=== PATIENT | female | born 1980 | race African-American/Black ===

== ENCOUNTER 2024-10-20 13:35 | Inpatient (IN) | payer OTHER ==
[~2024-10-20] VITALS: Ht 167.6 cm; Wt 108.9 kg
[2024-10-20 14:27] LABS: CLARITY,URINE SL CLOUDY (CLEAR); COLOR,URINE AMBER (YELLOW)
[2024-10-20 14:28] LABS: BILIRUBIN,URINE NEGATIVE (NEGATIVE); GLUCOSE, URINE NEGATIVE (NEGATIVE); KETONES,URINE NEGATIVE (NEGATIVE); LEUKOCYTE ESTERASE ,URINE NEGATIVE (NEGATIVE); NITRITE,URINE NEGATIVE (NEGATIVE); PH,URINE 6 (5 - 7); PROTEIN,URINE DIPSTICK TRACE (NEGATIVE); URINE UROBILINOGEN 0.2 mg/dL (0.2 - 1)
[2024-10-20 14:41] LABS: AMORPHOUS SEDIMENT,URINE FEW; BACTERIA,URINE MODERATE /HPF; EPITHELIAL CELLS,URINE FEW /LPF; RBC,URINE 0-5 /HPF (0-5); WBC,URINE (MAN) 0-5 /HPF (0-5)
[2024-10-20] MEDS: ONDANSETRON HCL INJ 2MG/ML 2ML 2 MG/ML VIAL IV STA (16:14)
[2024-10-20] MEDS: KETOROLAC TROMETHAMINE 30 MG/ML VIAL IV STA (16:15)
[2024-10-20] MEDS: Morphine 4mg INJECTION 4 MG/ML INJ IV STA (16:16)
[2024-10-20] MEDS: SODIUM CHLORIDE 0.9% 1000ML 1,000 ML IV STA ×2 (16:17→19:43)
[2024-10-20 16:23] LABS: BASOPHILS % 0.2 % (0.0-1.0); EOSINOPHILS # (AUTO) 0.1 (0.0-0.4); EOSINOPHILS % 1.1 % (0.0-6.0); HEMATOCRIT 46.8 % (34.2-44.1); HEMOGLOBIN 15.1 g/dL (12.0-16.0); LYMPHOCYTES # (AUTO) 2.3 (1.0-3.2); LYMPHOCYTES % 20.7 % (18.0-39.1); MEAN CORPUSCULAR HEMOGLOBIN 29.9 pg (28-32); MEAN CORPUSCULAR HGB CONC 32.3 g/dL (31-35); MEAN CORPUSCULAR VOLUME 92.7 fL (81-99); MONOCYTES # (AUTO) 0.7 (0.2-0.8); MONOCYTES % 6.3 % (4.4-11.3); NEUTROPHILS # (AUTO) 7.8 (2.1-6.9); NEUTROPHILS % 71.3 % (38.7-80.0); PLATELET COUNT 246 x10e3/uL (140-360); RED BLOOD COUNT 5.05 x10e6/uL (3.6-5.1); RED CELL DISTRIBUTION WIDTH 12.5 % (11.7-14.4); WHITE BLOOD COUNT 10.94 x10e3/uL (4.8-10.8)
[2024-10-20 16:53] LABS: ALANINE AMINOTRANSFERASE 31 IU/L (0-55); ALBUMIN 3.7 g/dL (3.5-5.0); ALBUMIN/GLOBULIN RATIO 0.8 (0.8-2.0); ALKALINE PHOSPHATASE 37 IU/L (40-150); ANION GAP 17.1 mmol/L (8-16); BILIRUBIN,TOTAL 0.3 mg/dL (0.2-1.2); BLOOD UREA NITROGEN 9 mg/dL (7-26); BUN/CREATININE RATIO 11 (6-25); CALCIUM 8.8 mg/dL (8.4-10.2); CARBON DIOXIDE 16 mmol/L (22-29); CHLORIDE 110 mmol/L (98-107); CREATININE, SERUM 0.79 mg/dL (0.57-1.11); EST GLOMERULAR FILTRATION RATE 95 ML/MIN (>=60); GLUCOSE 80 mg/dL (74-118); LIPASE 32 U/L (8-78); POTASSIUM 4.1 mmol/L (3.5-5.1); SODIUM 139 mmol/L (136-145); TOTAL PROTEIN 8.2 g/dL (6.5-8.1)
[2024-10-20 17:08] LABS: TROPONIN I < 0.001 ng/mL (0-0.300)
[2024-10-20 18:22] LABS: PROTHROMBIN TIME 13.8 seconds (11.9-14.5)
[2024-10-20 18:23] LABS: PARTIAL THROMBOPLASTIN TIME 27.1 seconds (23.8-35.5)
[2024-10-20] MEDS ORDERED: IOPAMIDOL 370 MG/ML 100 ML INFUS..BTL INJ ONE (18:39)
[2024-10-20] MEDS ORDERED: APIXABAN 2.5 MG TABLET PO SCH (22:30)
[2024-10-20] MEDS: HEPARIN SOD (PORCINE) 5,000 UNIT/ML VIAL IV ONE (23:26)
[2024-10-20] MEDS: SODIUM CHLORIDE 0.9% 1000ML 1,000 ML IV SCH (23:28)
[2024-10-20] MEDS: HEPARIN SOD/DEXTROSE 5% 25000 UNIT/250 ML BAG IV SCH (23:28)
[2024-10-20 23:50] VITALS: PULSE 73; RESP 22; O2SAT 99
[2024-10-21] VITALS (12 sets, daily range): BP systolic 141–168; BP diastolic 82–102; PULSE 66–82; RESP 15–20; TEMP 97.3–98; O2SAT 97–100
[2024-10-21] MEDS: ONDANSETRON HCL INJ 2MG/ML 2ML 2 MG/ML VIAL IV PRN (03:51)
[2024-10-21] MEDS: Morphine 4mg INJECTION 4 MG/ML INJ IV PRN (03:51)
[2024-10-21] MEDS ORDERED: GUAIFENESIN/DEXTROMETHORPHAN LIQD 5 ML UDC PO PRN (04:00)
[2024-10-21] MEDS ORDERED: DOCUSATE SODIUM 100 MG CAP PO PRN ×2 (04:00→13:00)
[2024-10-21] MEDS ORDERED: MAGNESIUM/ALUMINUM/SIMETHICONE 30 ML UDC PO PRN (04:00)
[2024-10-21] MEDS ORDERED: ALBUTEROL SULF 0.083% NEB SOLN 3 ML NEB NEB PRN (04:00)
[2024-10-21] MEDS ORDERED: MELATONIN 3 MG TAB PO PRN (04:00)
[2024-10-21] MEDS ORDERED: HYDRALAZINE HCL 20 MG/ML VIAL IV PRN ×2 (04:00→13:00)
[2024-10-21 06:01] LABS: BASOPHILS % 0.1 % (0.0-1.0); EOSINOPHILS # (AUTO) 0.1 (0.0-0.4); EOSINOPHILS % 1.6 % (0.0-6.0); HEMATOCRIT 33.5 % (34.2-44.1); LYMPHOCYTES # (AUTO) 3.2 (1.0-3.2); LYMPHOCYTES % 36.1 % (18.0-39.1); MEAN CORPUSCULAR HEMOGLOBIN 29.8 pg (28-32); MEAN CORPUSCULAR HGB CONC 32.8 g/dL (31-35); MEAN CORPUSCULAR VOLUME 90.8 fL (81-99); MONOCYTES # (AUTO) 0.7 (0.2-0.8); MONOCYTES % 8.2 % (4.4-11.3); NEUTROPHILS # (AUTO) 4.7 (2.1-6.9); NEUTROPHILS % 53.7 % (38.7-80.0); PLATELET COUNT 225 x10e3/uL (140-360); RED BLOOD COUNT 3.69 x10e6/uL (3.6-5.1); RED CELL DISTRIBUTION WIDTH 12.7 % (11.7-14.4); WHITE BLOOD COUNT 8.83 x10e3/uL (4.8-10.8)
[2024-10-21 06:19] LABS: ALBUMIN 2.9 g/dL (3.5-5.0); ALBUMIN/GLOBULIN RATIO 0.9 (0.8-2.0); ANION GAP 10.7 mmol/L (8-16); BILIRUBIN,TOTAL 0.4 mg/dL (0.2-1.2); CALCIUM 8.2 mg/dL (8.4-10.2); CREATININE, SERUM 0.77 mg/dL (0.57-1.11); POTASSIUM 3.7 mmol/L (3.5-5.1); TOTAL PROTEIN 6.1 g/dL (6.5-8.1)
[2024-10-21 06:44] LABS: CREATINE KINASE 113 IU/L (29-168)
[2024-10-21 06:53] LABS: TROPONIN I < 0.001 ng/mL (0-0.300)
[2024-10-21] MEDS: MULTIVITAMINS/MINERALS TAB PO SCH (09:25)
[2024-10-21] MEDS ORDERED: DIPHENHYDRAMINE HCL 25 MG CAP PO PRN (13:00)
[2024-10-21] MEDS ORDERED: LIDOCAINE 4% PATCH TP PRN (13:00)
[2024-10-21] MEDS ORDERED: POTASSIUM CHLORIDE 20 MEQ TAB CR PO PRN (13:00)
[2024-10-21] MEDS ORDERED: DEXTROSE 50% SYRINGE 50 ML IV PRN (13:00)
[2024-10-21] MEDS ORDERED: ALBUTEROL/IPRATROPIUM 3 ML NEB NEB PRN (13:00)
[2024-10-21] MEDS ORDERED: BENZONATATE 100 MG CAP PO PRN (13:00)
[2024-10-21] MEDS ORDERED: ACETAMINOPHEN 325 MG TAB PO PRN (13:00)
[2024-10-21] MEDS ORDERED: SIMETHICONE 80 MG CHEW PO PRN (13:00)
[2024-10-21] MEDS ORDERED: MELATONIN 5 MG TABLET PO PRN (13:00)
[2024-10-21] MEDS ORDERED: HEPARIN SOD/DEXTROSE 5% 25000 UNIT/250 ML BAG IV SCH (15:00)
[2024-10-21] MEDS ORDERED: ENSKYCE 28 TAB1 EACH (15:53)
[2024-10-21] MEDS: ACETAMINOPHEN 325 MG TAB PO PRN (16:05)
[2024-10-21 17:39] LABS: CREATINE KINASE 94 IU/L (29-168)
[2024-10-21 17:46] LABS: TROPONIN I < 0.001 ng/mL (0-0.300)
[2024-10-21] MEDS: APIXABAN 5 MG TABLET PO SCH (20:36)
[2024-10-22] VITALS (8 sets, daily range): BP systolic 122–144; BP diastolic 77–97; PULSE 76–90; RESP 17–19; TEMP 98.1–98.5; O2SAT 95–100
[2024-10-22 05:12] LABS: BASOPHILS % 0.1 % (0.0-1.0); EOSINOPHILS # (AUTO) 0.1 (0.0-0.4); EOSINOPHILS % 1.5 % (0.0-6.0); HEMATOCRIT 34.8 % (34.2-44.1); HEMOGLOBIN 11.7 g/dL (12.0-16.0); LYMPHOCYTES # (AUTO) 2.1 (1.0-3.2); MEAN CORPUSCULAR HGB CONC 33.6 g/dL (31-35); MEAN CORPUSCULAR VOLUME 89.2 fL (81-99); MONOCYTES # (AUTO) 0.6 (0.2-0.8); MONOCYTES % 8.5 % (4.4-11.3); NEUTROPHILS # (AUTO) 4.5 (2.1-6.9); NEUTROPHILS % 61.6 % (38.7-80.0); PLATELET COUNT 260 x10e3/uL (140-360); RED CELL DISTRIBUTION WIDTH 12.6 % (11.7-14.4); WHITE BLOOD COUNT 7.31 x10e3/uL (4.8-10.8)
[2024-10-22 05:37] LABS: ANION GAP 12.7 mmol/L (8-16); CALCIUM 9.3 mg/dL (8.4-10.2); CREATININE, SERUM 0.8 mg/dL (0.57-1.11); POTASSIUM 3.7 mmol/L (3.5-5.1)
[2024-10-22] MEDS: PANTOPRAZOLE SOD 40 MG TABEC PO SCH (09:39)
[2024-10-22] MEDS: SODIUM CHLORIDE 0.9% 250ML 250 ML ONE (09:45)
[2024-10-22] MEDS ORDERED: ELIQUIS5 MG PO (16:21)
== END 2024-10-22 18:00 | disposition home or self-care (01) | DRG 175 ==
LOC: ER 14:20 → ERHOLD 21:13 → ICU 10-21 08:38 → MED/SURG 10-21 19:40
PROVIDERS: ADMIT Internal Medicine; ATTEND Internal Medicine
DX: I26.99 Other pulmonary embolism without acute cor pulmonale (principal); J18.9 Pneumonia, unspecified organism; I26.93 Single subsegmental thrombotic pulmonary embolism without acute cor pulmonale; J30.9 Allergic rhinitis, unspecified; N20.0 Calculus of kidney; R22.2 Localized swelling, mass and lump, trunk; N83.209 Unspecified ovarian cyst, unspecified side; E66.01 Morbid (severe) obesity due to excess calories; Z68.38 Body mass index [BMI] 38.0-38.9, adult; K05.20 Aggressive periodontitis, unspecified; Z79.01 Long term (current) use of anticoagulants; Z79.3 Long term (current) use of hormonal contraceptives; Z90.710 Acquired absence of both cervix and uterus; Z86.718 Personal history of other venous thrombosis and embolism
CPT/HCPCS: 36415; 70450; 71045; 71260; 74176; 76705; 80048; 80053; 81001; 82550; 83690; 84484; 84702; 85025; 85379; 85610; 85730; 93005; 93306; 93970; 94799; 99252; 99284; J0696; J1644; J1885; J2270; J2405; J2470; J7030; J7050; Q9967

== ENCOUNTER 2024-10-26 19:11 | Emergency (ER) | payer MEDICARE, OTHER ==
[~2024-10-26] VITALS: Ht 167.6 cm; Wt 108.9 kg
[~2024-10-26 19:11] MED LIST: ELIQUIS5 MG PO; ENSKYCE 28 TAB1 EACH
[2024-10-26] MEDS: ACETAMINOPHEN 325 MG TAB PO ONE (19:49)
[2024-10-26 19:52] LABS: BASOPHILS % 0.2 % (0.0-1.0); EOSINOPHILS # (AUTO) 0.2 (0.0-0.4); EOSINOPHILS % 1.7 % (0.0-6.0); HEMATOCRIT 39.8 % (34.2-44.1); HEMOGLOBIN 13.3 g/dL (12.0-16.0); LYMPHOCYTES # (AUTO) 2.9 (1.0-3.2); LYMPHOCYTES % 32.5 % (18.0-39.1); MEAN CORPUSCULAR HEMOGLOBIN 29.8 pg (28-32); MEAN CORPUSCULAR HGB CONC 33.4 g/dL (31-35); MONOCYTES # (AUTO) 0.6 (0.2-0.8); NEUTROPHILS # (AUTO) 5.2 (2.1-6.9); NEUTROPHILS % 58.3 % (38.7-80.0); PLATELET COUNT 350 x10e3/uL (140-360); RED BLOOD COUNT 4.47 x10e6/uL (3.6-5.1); RED CELL DISTRIBUTION WIDTH 12.4 % (11.7-14.4); WHITE BLOOD COUNT 8.99 x10e3/uL (4.8-10.8)
[2024-10-26 20:17] LABS: ALBUMIN 3.4 g/dL (3.5-5.0); ALBUMIN/GLOBULIN RATIO 0.9 (0.8-2.0); ANION GAP 14.9 mmol/L (8-16); BILIRUBIN,TOTAL 0.2 mg/dL (0.2-1.2); CREATININE, SERUM 0.79 mg/dL (0.57-1.11); POTASSIUM 3.9 mmol/L (3.5-5.1); TOTAL PROTEIN 7.2 g/dL (6.5-8.1)
[2024-10-26 21:36] VITALS: PULSE 72; RESP 16; O2SAT 100
[2024-10-26 21:47] VITALS: TEMP 98.7
== END 2024-10-26 21:50 | disposition home or self-care (01) ==
LOC: ER 19:41
DX: R51.9 Headache, unspecified (principal); R00.2 Palpitations; R20.0 Anesthesia of skin; R94.31 Abnormal electrocardiogram [ECG] [EKG]; Z86.711 Personal history of pulmonary embolism
CPT/HCPCS: 36415; 71045; 80053; 84484; 85025; 93005; 93971; 99284